=== PATIENT | female | born 1995 | race Caucasian/White ===

== ENCOUNTER 2021-01-05 19:16 | Emergency (ER) | payer BC, OTHER ==
[~2021-01-05] VITALS: Ht 162.6 cm; Wt 117.9 kg
[~2021-01-05 19:16] MED LIST: COLACE 100 MG100 MG PO; HYDROCODONE-AP1 EAC6 PO; IBUPROFEN 600600 M1 PO; MUSCLE RELAXERS; [UNRECOGNIZED DRUG - REMARK]
[2021-01-05 19:17] VITALS: BP 142/81
[2021-01-05] MEDS ORDERED: VALTREX1000 MG PO (19:43)
[2021-01-05] MEDS ORDERED: BACTRIM DS TAB1 EAC1 PO (19:43)
== END 2021-01-05 19:58 | disposition home or self-care (01) ==
LOC: ER 19:16
DX: S30.864A Insect bite (nonvenomous) of vagina and vulva, initial encounter (principal); N89.8 Other specified noninflammatory disorders of vagina; Z88.8 Allergy status to other drugs, medicaments and biological substances; W57.XXXA Bitten or stung by nonvenomous insect and other nonvenomous arthropods, initial encounter; Y93.89 Activity, other specified; Y92.89 Other specified places as the place of occurrence of the external cause; Y99.8 Other external cause status